=== PATIENT | male | born 2000 | race Caucasian/White ===

== ENCOUNTER 2020-09-02 19:27 | Emergency (ER) | payer OTHER ==
[2020-09-02 21:28] LABS: HEMOGLOBIN 14.3 gm/dl (14.0-17.5); RED BLOOD COUNT 5.29 M/UL (4.20-5.50)
[2020-09-02 22:04] LABS: BUN/CREATININE RATIO 21 (0-10)
== END 2020-09-02 23:20 | disposition home or self-care (01) ==
LOC: ER1 19:27
PROVIDERS: Physician Assistant Medical
DX: R07.9 Chest pain, unspecified (principal); R51.9 Headache, unspecified; I10 Essential (primary) hypertension; Z90.89 Acquired absence of other organs
CPT/HCPCS: 71046; 80053; 82550; 82553; 83874; 84484; 85025; 93005; 99285